=== PATIENT | female | born 1955 | race Caucasian/White ===

== ENCOUNTER 2020-12-05 15:36 | Observation (INO) ==
[2020-12-05] MEDS ORDERED: *HR* Promethazine 25 MG/ML VIAL IM PRN (22:03)
[2020-12-05] MEDS ORDERED: Melatonin 3 MG TABLET PO PRN (22:03)
[2020-12-05] MEDS ORDERED: Ondansetron 4 MG/2 ML VIAL IVP PRN (22:03)
[2020-12-05] MEDS ORDERED: Naloxone 0.4 MG/ML INJ IVP PRN (22:03)
[2020-12-05] MEDS ORDERED: Acetaminophen 325 MG TABLET PO PRN (22:03)
[2020-12-05] MEDS: 0.9 % Sodium Chloride 1,000 ML IVC SCH (22:34)
[2020-12-05] MEDS: *HR* OxyCODONE Immed Rel 5 MG TABLET PO PRN (22:35)
[2020-12-05 23:32] LABS: Influenza A PCR Negative (Negative); Influenza B PCR Negative (Negative); Resp. Syncytial Virus PCR Negative (Negative)
[2020-12-05 23:36] LABS: SARS-CoV-2 by PCR (In House) Negative (Negative)
[2020-12-06] MEDS: *HR* HYDROcodone/Acet 5/325 mg TABLET PO PRN ×2 (01:39→20:16)
[2020-12-06 05:06] LABS: Hematocrit 36.8 % (35.3-44.9); Mean Corpuscular HGB Conc 32.6 g/dL (31.6-35.5); Mean Corpuscular Hemoglobin 30.9 pg (28.0-33.3); Mean Corpuscular Volume 94.8 fL (83.0-100.0); Mean Platelet Volume 9.6 fL (9.4-12.4); Platelet Count 173 K/mcL (140-400); Red Blood Count 3.88 M/mcL (3.82-4.97); Red Cell Distribution Width 12.7 % (11.5-14.5); White Blood Count 7.7 K/mcL (4.3-11.1)
[2020-12-06 05:36] LABS: Alanine Aminotransferase 9 Units/L (7-52); Albumin 3.4 g/dL (3.5-5.7); Albumin/Globulin Ratio 1.5 (1.1-2.2); Alkaline Phosphatase 67 Units/L (34-104); Aspartate Amino Transferase 14 Units/L (13-39); BUN/Creatinine Ratio 22 (6-26); Bilirubin,Total 0.4 mg/dL (0.3-1.0); Blood Urea Nitrogen 19 mg/dL (8-23); Calcium 8.5 mg/dL (8.6-10.3); Carbon Dioxide 26 mEq/L (23-29); Chloride 110 mEq/L (98-107); Globulin 2.2 g/dL (2.4-3.5); Glucose 93 mg/dL (70-105); Osmolality,Calculated 296 (280-300); Potassium 4.5 mEq/L (3.5-5.1); Sodium 142 mEq/L (136-145); Total Protein 5.6 g/dL (6.4-8.9); eGFR For African Americans > 60 (> 60); eGFR For Non-African Americans > 60 (> 60)
[2020-12-06] MEDS: *HR* OxyCODONE Immed Rel 5 MG TABLET PO PRN (05:45)
[2020-12-06] MEDS ORDERED: Ondansetron 4 MG/2 ML VIAL ONE (09:32)
[2020-12-06] MEDS ORDERED: Lidocaine -MPF 2% 2 ML VIAL ONE (09:32)
[2020-12-06] MEDS ORDERED: *HR* Propofol 200 MG/20 ML VIAL IVP ONE (09:33)
[2020-12-06] MEDS ORDERED: *HR* FentaNYL (PF) 100 MCG/2 ML VIAL ONE (09:40)
[2020-12-06] MEDS ORDERED: *HR* Midazolam HCl 2 MG/2 ML VIAL ONE (09:40)
[2020-12-06] MEDS ORDERED: *HR* HYDROmorphone 2 MG TABLET PO PRN (09:48)
[2020-12-06] MEDS ORDERED: *HR* HYDROmorphone (PF) 1 MG/ML SYRINGE IVP PRN (09:48)
[2020-12-06] MEDS ORDERED: *HR* Labetalol 20 MG/4 ML SYRINGE IVP PRN (09:48)
[2020-12-06] MEDS ORDERED: Promethazine 6.25 MG in Water for inj. (sterile) 20 ML IVPB PRN (09:48)
[2020-12-06] MEDS ORDERED: *HR* OxyCODONE Immed Rel 5 MG TABLET PO PRN (09:48)
[2020-12-06] MEDS ORDERED: Famotidine 20 MG/2 ML VIAL IVP ONE (09:48)
[2020-12-06] MEDS ORDERED: Acetaminophen IV 1,000 MG/100 ML BAG IVPB ONE ×2 (09:48→10:08)
[2020-12-06] MEDS ORDERED: Isovue-300 50ML VIAL ONE (09:50)
[2020-12-06] MEDS ORDERED: Famotidine 20 MG/2 ML VIAL ONE (10:08)
[2020-12-06] MEDS ORDERED: CeFAZolin Syr 2,000MG/20 ML 2,000 MG/20 ML SYRINGE IVPB ONE (10:15)
[2020-12-06] MEDS: 0.9 % Sodium Chloride 1,000 ML IVC SCH (18:08)
[2020-12-07 07:38] VITALS: BP 155/80
== END 2020-12-07 12:50 | disposition home or self-care (01) ==
LOC: 3BNU → SUATTDRO 20:53
PROVIDERS: ADMIT Internal Medicine; ATTEND Internal Medicine